=== PATIENT | female | born 1970 | race Caucasian/White ===

== ENCOUNTER → 2017-11-09 | Outpatient (REF) | payer BC ==
[2017-11-09 19:36] LABS: APPEARANCE, URINE MANUAL TURBID (CLEAR); COLOR, URINE MANUAL RED (YELLOW)
[2017-11-09 19:37] LABS: BILIRUBIN, URINE MANUAL NEGATIVE (NEGATIVE); BLOOD URINE MANUAL POSITIVE (NEGATIVE); GLUCOSE, URINE (UA) MANUAL NEGATIVE (NEGATIVE); KETONE, URINE MANUAL NEGATIVE (NEGATIVE); LEUKOCYTE ESTERASE, URINE MAN POSITIVE (NEGATIVE); NITRITE, URINE MANUAL NEGATIVE (NEGATIVE); PROTEIN, URINE MANUAL 3+ mg/dL (NEGATIVE); UROBILINOGEN, URINE MANUAL NORMAL (NORMAL)
[2017-11-09 19:38] LABS: MICROSCOPIC INDICATED? MAN YES (NO)
[2017-11-09 19:42] LABS: CALCIUM OXALATE CRYSTALS,URINE SMALL AMOUNT /hpf; RBC, URINE TNTC /hpf (0-3); SQUAMOUS EPITHELIAL CELL URINE SMALL AMOUNT /hpf (SMALL AMT)
[2017-11-09 19:58] LABS: WBC, URINE TNTC /hpf (0-3)
[2017-11-09 20:00] LABS: BACTERIA, URINE NONE SEEN; HYALINE CAST, URINE NONE SEEN /lpf (0-1); MICROSCOPIC EXAM PERFORMED
== END ==
LOC: M LAB REF 17:45
DX: N39.0 Urinary tract infection, site not specified (principal)

== ENCOUNTER → 2018-09-24 | Outpatient (REF) | payer BC ==
[2018-09-24 17:36] LABS: BASO # 0.1 10^3/uL (0.0-0.2); BASO % 0.9 % (0.0-1.0); EOS # 0.5 10^3/uL (0.0-0.50); EOS % 7.5 % (0.0-3.0); HEMATOCRIT 41.8 % (36.0-47.0); HEMOGLOBIN 13.9 g/dl (12.0-15.5); LYMPH # 2.3 10^3/uL (1.5-4.5); LYMPH % 33.8 % (24.0-44.0); MEAN CORPUSCULAR HEMOGLOBIN 32.6 pg (27.0-33.0); MEAN CORPUSCULAR HGB CONC 33.3 g/dl (32.0-36.5); MEAN CORPUSCULAR VOLUME 97.9 fl (80.0-96.0); MONO # 0.8 10^3/uL (0.0-0.8); MONO % 12.3 % (0.0-5.0); NEUTROPHILS % 45.4 % (36.0-66.0); PLATELET COUNT, AUTOMATED 227 10^3/uL (150-450); RED BLOOD COUNT 4.27 10^6/uL (4.00-5.40); WHITE BLOOD COUNT 6.7 10^3/uL (4.0-10.0)
[2018-09-24 18:01] LABS: FREE T4 0.92 NG/DL (0.76-1.46); THYROID STIMULATING HORMONE 1.38 uIU/ML (0.358-3.740)
== END ==
LOC: M SFHCWAGY 15:54
PROVIDERS: ATTEND Nurse Practitioner Women's Health
DX: N92.1 Excessive and frequent menstruation with irregular cycle (principal)

== ENCOUNTER → 2018-09-25 | Outpatient (CLI) | payer BC ==
--- NOTE | 2018-09-26 04:18 | REP ---
Clinical: Pelvic pain menorrhagia . Technique: Transabdominal pelvic ultrasound followed by transvaginal examination for better evaluation of the endometrium and adnexa. Findings: Bladder is unremarkable and measures 4.6 x 5.5 x 8.4 cm . Normal anteverted uterus measures 8.7 x 4.4 x 5.1 cm . The endometrial complex measures 7.7 mm thickness. No discrete uterine or endometrial abnormalities are appreciated. Incidental subcentimeter Nabothian cysts noted. Right ovary measures 2.0 x 1.0 x 1.4 cm and appears normal. Left ovary measures 4.6 x 2.6 x 4.3 cm with 3.7 x 2.2 x 3.4 cm complex septated cyst. No pelvic fluid or adnexal mass lesion . Impression: 1. Normal uterus and right ovary. 2. 3.7 cm septated cyst in the left ovary likely physiologic. Consider reevaluation in 4-6 weeks to evaluate for resolution.
== END ==
LOC: M WHC 13:58
PROVIDERS: ATTEND Nurse Practitioner Women's Health
DX: N83.202 Unspecified ovarian cyst, left side (principal); N92.1 Excessive and frequent menstruation with irregular cycle

== ENCOUNTER → 2018-11-06 | Outpatient (CLI) | payer BC ==
--- NOTE | 2018-11-07 09:43 | REP ---
Clinical: Follow-up left ovarian cyst . Comparison: 09/25/2018 Technique: Transabdominal pelvic ultrasound followed by transvaginal examination for better evaluation of the endometrium and adnexa with color Doppler evaluation of the ovaries. Findings: Bladder is unremarkable and measures 8.1 x 7.2 x 9.7 cm . Normal anteverted uterus measures 8.0 x 3.7 x 4.6 cm . The endometrial complex measures 3.9 mm thickness. No discrete uterine or endometrial abnormalities are appreciated. Right ovary measures 1.8 x 1.2 x 3.1 cm and appears normal. Left ovary measures 3.0 x 1.4 x 2.4 cm with 8 mm follicle/cyst and adjacent small calcification. No pelvic fluid or adnexal mass lesion . Impression: 1. essentially normal pelvic ultrasound as above. 2. Previously noted septated left ovarian cyst has resolved and a small 8 mm left ovarian cyst / follicle with calcification is identified and likely physiologic. Electronically Signed by Miguel Ángel Juarez MD 11/07/2018 09:34 A
== END ==
LOC: M WHC 15:00
PROVIDERS: ATTEND Nurse Practitioner Women's Health
DX: N83.202 Unspecified ovarian cyst, left side (principal)

== ENCOUNTER → 2024-08-11 | Outpatient (CLI) | payer OTHER | LOC: M WUC 11:03 | PROVIDERS: ATTEND Nurse Practitioner Family | DX: R05.9 Cough, unspecified (principal); R06.02 Shortness of breath ==